=== PATIENT | male | born 1995 | race American Indian/Alaskan Native ===

== ENCOUNTER 2016-12-19 19:08 | Emergency (ER) | payer SELFPAY ==
[2016-12-19 20:35] LABS: Basophils # (Auto) 0.1 K/mm3 (0.0-0.1); Basophils % (Auto) 0.7 % (0.0-1.8); Eosinophils # (Auto) 0.2 K/mm3 (0.0-0.4); Eosinophils % (Auto) 1.8 % (0.0-4.3); Hematocrit 45.9 % (35.5-45.6); Hemoglobin 15.7 gm/dl (11.8-15.2); Lymphocytes # (Auto) 2.3 K/mm3 (1.2-5.4); Lymphocytes % (Auto) 22.2 % (13.4-35.0); Mean Corpuscular HGB Conc 34 % (32-34); Mean Corpuscular Hemoglobin 30 pg (28-32); Mean Corpuscular Volume 88 fl (84-94); Monocytes # (Auto) 0.9 K/mm3 (0.0-0.8); Monocytes % (Auto) 9.1 % (0.0-7.3); Platelet Count 244 K/mm3 (140-440); Red Blood Count 5.22 M/mm3 (3.65-5.03); Red Cell Distribution Width 14.2 % (13.2-15.2)
[2016-12-19 20:55] LABS: BUN/Creatinine Ratio 17; Blood Urea Nitrogen 15 mg/dL (9-20); Calcium 9.3 mg/dL (8.4-10.2); Hemolysis Index 9
[2016-12-19 21:21] LABS: Bilirubin,Urine NEG (Negative); Blood,Urine MOD (Negative); Color,Urine Yellow (Yellow); Mucus,Urine 2+ /HPF; Nitrite,Urine NEG (Negative); Protein,Urine <15 mg/dL mg/dL (Negative)
[2016-12-19 21:31] LABS: Amphetamine Screen,Urine PRESUMPTIVE NEGATIVE; Benzodiazepines Screen,Urine PRESUMPTIVE NEGATIVE; Cocaine Screen,Urine PRESUMPTIVE NEGATIVE; Methadone Screen,Urine PRESUMPTIVE NEGATIVE; Opiate Screen,Urine PRESUMPTIVE NEGATIVE
[2016-12-19 21:43] LABS: Cannabinoid Screen,Urine PRESUMPTIVE POSITIVE
--- NOTE | 2016-12-19 22:21 | Emergency Department Report ---
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 He states that he hears some voices sometimes but he doesn't know what they're saying. Patient has not been on any medication for the last couple weeks. Patient states that he is a fat and that he is homeless. Patient denies being in any pain when asked if he has any suicidal ideation he states "no." - Related Data Allergies Allergy/AdvReac Type Severity Reaction Status Date / Time No Known Allergies Allergy Verified 12/19/16 19:58 ED Review of Systems ROS: Stated complaint: [facility] EVAL Other details as noted in HPI Constitutional: denies: chills, fever Eyes: denies: eye pain, eye discharge, vision change ENT: denies: ear pain, throat pain Respiratory: denies: cough, shortness of breath, wheezing Cardiovascular: denies: chest pain, palpitations Endocrine: no symptoms reported Gastrointestinal: denies: abdominal pain, nausea, diarrhea Genitourinary: denies: urgency, dysuria Musculoskeletal: denies: back pain, joint swelling, arthralgia Skin: denies: rash, lesions Neurological: denies: headache, weakness, paresthesias Psychiatric: depression, auditory hallucinations, homicidal thoughts. denies: anxiety Hematological/Lymphatic: denies: easy bleeding, easy bruising ED Past Medical Hx - Past Medical History Previous Medical History?: Yes Hx Psychiatric Treatment: Yes (schizophrenia) - Surgical History Past Surgical History?: No - Social History Smoking Status: Current Every Day Smoker Substance Use Type: Alcohol, Cocaine, Marijuana ED Physical Exam - General Limitations: No Limitations General appearance: alert, in no apparent distress - Head Head exam: Present: atraumatic, normocephalic - Eye Eye exam: Present: normal appearance - ENT ENT exam: Present: mucous membranes moist - Neck Neck exam: Present: normal inspection - Respiratory Respiratory exam: Present: normal lung sounds bilaterally. Absent: respiratory distress - Cardiovascular Cardiovascular Exam: Present: regular rate, normal rhythm. Absent: systolic murmur, diastolic murmur, rubs, gallop - GI/Abdominal GI/Abdominal exam: Present: soft, normal bowel sounds - Rectal Rectal exam: Present: deferred - Extremities Exam Extremities exam: Present: normal inspection - Back Exam Back exam: Present: normal inspection - Neurological Exam Neurological exam: Present: alert, oriented X3 - Psychiatric Psychiatric exam: Present: agitated, anxious, flat affect, homicidal ideation - Skin Skin exam: Present: warm, dry, intact, normal color. Absent: rash ED Course Vital Signs 12/19/16 19:58 Temperature 98.4 F Pulse Rate 79 Respiratory 16 Rate Blood Pressure 130/91 O2 Sat by Pulse 97 Oximetry ED Medical Decision Making - Lab Data Result diagrams: 12/19/16 20:20 12/19/16 20:20 Lab Results 12/19/16 12/19/16 12/19/16 Range/Units 20:20 20:20 20:20 WBC 10.4 (4.5-11.0) K/mm3 RBC 5.22 H (3.65-5.03) M/mm3 Hgb 15.7 H (11.8-15.2) gm/dl Hct 45.9 H (35.5-45.6) % MCV 88 (84-94) fl MCH 30 (28-32) pg MCHC 34 (32-34) % RDW 14.2 (13.2-15.2) % Plt Count 244 (140-440) K/mm3 Lymph % (Auto) 22.2 (13.4-35.0) % [place] % (Auto) 9.1 H (0.0-7.3) % Eos % (Auto) 1.8 (0.0-4.3) % Baso % (Auto) 0.7 (0.0-1.8) % Lymph # 2.3 (1.2-5.4) K/mm3 [place] # 0.9 H (0.0-0.8) K/mm3 Eos # 0.2 (0.0-0.4) K/mm3 Baso # 0.1 (0.0-0.1) K/mm3 Seg Neutrophils % 66.2 (40.0-70.0) % Seg Neutrophils # 6.9 (1.8-7.7) K/mm3 Sodium 138 (137-145) mmol/L Potassium 4.8 (3.6-5.0) mmol/L Chloride 98.1 (98-107) mmol/L Carbon Dioxide 25 (22-30) mmol/L Anion Gap 20 mmol/L BUN 15 (9-20) mg/dL Creatinine 0.9 (0.8-1.5) mg/dL Estimated GFR > 60 ml/min BUN/Creatinine Ratio 17 % Glucose 91 (75-100) mg/dL Calcium 9.3 (8.4-10.2) mg/dL Urine Color (Yellow) Urine Turbidity (Clear) Urine pH (5.0-7.0) Ur Specific Pep (1.003-1.030) Urine Protein (Negative) mg/dL Urine Glucose (UA) (Negative) mg/dL Urine Ketones (Negative) mg/dL Urine Blood (Negative) Urine Nitrite (Negative) Urine Bilirubin (Negative) Urine Urobilinogen (<2.0) mg/dL Ur Leukocyte Esterase (Negative) Urine WBC (Auto) (0.0-6.0) /HPF Urine RBC (Auto) (0.0-6.0) /HPF U Epithel Cells (Auto) (0-13.0) /HPF Urine Mucus /HPF Urine Opiates Screen Urine Methadone Screen Ur Barbiturates Screen Ur Phencyclidine Scrn Ur Amphetamines Screen U Benzodiazepines Scrn Urine Cocaine Screen U Marijuana (THC) Screen Drugs of Abuse Note Plasma/Serum Alcohol < 0.01 (0-0.07) gm% 12/19/16 12/19/16 Range/Units 21:00 21:00 WBC (4.5-11.0) K/mm3 RBC (3.65-5.03) M/mm3 Hgb (11.8-15.2) gm/dl Hct (35.5-45.6) % MCV (84-94) fl MCH (28-32) pg MCHC (32-34) % RDW (13.2-15.2) % Plt Count (140-440) K/mm3 Lymph % (Auto) (13.4-35.0) % [place] % (Auto) (0.0-7.3) % Eos % (Auto) (0.0-4.3) % Baso % (Auto) (0.0-1.8) % Lymph # (1.2-5.4) K/mm3 [place] # (0.0-0.8) K/mm3 Eos # (0.0-0.4) K/mm3 Baso # (0.0-0.1) K/mm3 Seg Neutrophils % (40.0-70.0) % Seg Neutrophils # (1.8-7.7) K/mm3 Sodium (137-145) mmol/L Potassium (3.6-5.0) mmol/L Chloride (98-107) mmol/L Carbon Dioxide (22-30) mmol/L Anion Gap mmol/L BUN (9-20) mg/dL Creatinine (0.8-1.5) mg/dL Estimated GFR ml/min BUN/Creatinine Ratio % Glucose (75-100) mg/dL Calcium (8.4-10.2) mg/dL Urine Color Yellow (Yellow) Urine Turbidity Clear (Clear) Urine pH 6.0 (5.0-7.0) Ur Specific Pep 1.031 H (1.003-1.030) Urine Protein <15 mg/dl (Negative) mg/dL Urine Glucose (UA) Neg (Negative) mg/dL Urine Ketones 20 (Negative) mg/dL Urine Blood Mod (Negative) Urine Nitrite Neg (Negative) Urine Bilirubin Neg (Negative) Urine Urobilinogen 4.0 (<2.0) mg/dL Ur Leukocyte Esterase Neg (Negative) Urine WBC (Auto) 1.0 (0.0-6.0) /HPF Urine RBC (Auto) 11.0 (0.0-6.0) /HPF U Epithel Cells (Auto) < 1.0 (0-13.0) /HPF Urine Mucus 2+ /HPF Urine Opiates Screen Presumptive negative Urine Methadone Screen Presumptive negative Ur Barbiturates Screen Presumptive negative Ur Phencyclidine Scrn Presumptive negative Ur Amphetamines Screen Presumptive negative U Benzodiazepines Scrn Presumptive negative Urine Cocaine Screen Presumptive negative U Marijuana (THC) Screen Presumptive positive Drugs of Abuse Note Disclamer Plasma/Serum Alcohol (0-0.07) gm% - Medical Decision Making 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 Also on a 1013 on this patient due to him having homicidal ideation. Patient will be a sinus assessed by psychiatry in the morning. Critical care attestation.: If time is entered above; I have spent that time in minutes in the direct care of this critically ill patient, excluding procedure time. ED Disposition Clinical Impression: Homicidal ideation Schizophrenia Qualifiers: Schizophrenia type: unspecified Qualified Code(s): F20.9 - Schizophrenia, unspecified Disposition: DC/TX-65 PSY HOSP/PSY UNIT Is pt being admited?: No Does the pt Need Aspirin: No Condition: Stable Referrals: PRIMARY CARE, [Primary Care Provider] - 3-5 Days
[2016-12-20] MEDS ORDERED: ALUM-MAG HYDROX-SIMETH 200-200-20MG/5ML PO PRN (00:16)
[2016-12-20] MEDS ORDERED: MILK OF MAGNESIA PO PRN (00:16)
[2016-12-20] MEDS ORDERED: TYLENOL PO PRN (00:16)
--- NOTE | 2016-12-20 13:09 | Consultation ---
Medications and Allergies Allergies Allergy/AdvReac Type Severity Reaction Status Date / Time No Known Allergies Allergy Verified 12/19/16 19:58 Home Medications Medication Instructions Recorded Confirmed Last Taken Type No Known Home Medications [No 12/20/16 12/20/16 Unknown History Reported Home Medications] Active Meds: Active Medications Acetaminophen (Tylenol) 650 mg PO Q4HR PRN PRN Reason: Pain MILD(1-3)/Fever >100.5/PERRY Al Hydrox/Mg Hydrox/Simethicone (Alum-Mag Hydrox-Simeth 364-553-74qt/5ml) 30 ml PO Q4HR PRN PRN Reason: Indigestion Magnesium Hydroxide (Milk Of Magnesia) 30 ml PO Q12HR PRN PRN Reason: Constipation Mental Status Exam - Vital signs Last Vital Signs Temp 97.8 F 12/20/16 05:59 Pulse 88 12/20/16 05:59 Resp 18 12/20/16 11:20 BP 144/73 12/20/16 05:59 Pulse Ox 99 12/20/16 05:59 - Exam Narrative exam: MSE: Appearance: calm, cooperative Behavior: regular eye contact Speech: regular rate and tone Mood: "fine" Affect: labile Thought Process: tangential Thought Content: denies SI/HI and VH's, disorganized Motor Activity: ambulatory Cognition: A/O x3 Insight: poor Judgment: poor Results Result Diagrams: 12/19/16 20:20 12/19/16 20:20 Abnormal lab results 12/19/16 12/19/16 Range/Units 20:20 21:00 RBC 5.22 H (3.65-5.03) M/mm3 Hgb 15.7 H (11.8-15.2) gm/dl Hct 45.9 H (35.5-45.6) % [place] % (Auto) 9.1 H (0.0-7.3) % [place] # 0.9 H (0.0-0.8) K/mm3 Ur Specific [place] 1.031 H (1.003-1.030) All other labs normal.
--- NOTE | 2016-12-20 13:10 | Consultation ---
History of Present Illness - Reason for Consult Consult date: 12/20/16 Reason for consult: Mental Health Evaluation Requesting physician: EDSON GASTON - Chief Complaint Chief complaint: "What do you want" - History of Present Psychiatric Illness Patient is a 21-year-old male past medical history of schizophrenia who presents with homicidal ideation. Today patient is calm, but disorganized during the assessment. Patient has a tangential thought process. He denies HI's when asked. Patient's answers to questions are not logical. He stated that he is "overweight." The patient has a slim build. He was not able to state his location prior to his admission to [facility]. Per collateral from his mother Tari Pete at [phone], she stated that her son has been missing since 15 Dec 2016. She stated that he have not taken his medication (Zyprexa) in weeks prior to him leaving her home. She stated that he has Schizophrenia. He denies SI/HI' s and VH's. He stated that he hear voices saying, "All type of stuff." Patient had to be redirected multiple times to stay focus. Patient stated that he have not slept for 4 days. He denies recreational drug use, but positive marijuana. He denies excessive alcohol consumption (etoh). Medications and Allergies Allergies Allergy/AdvReac Type Severity Reaction Status Date / Time No Known Allergies Allergy Verified 12/19/16 19:58 Home Medications Medication Instructions Recorded Confirmed Last Taken Type No Known Home Medications [No 12/20/16 12/20/16 Unknown History Reported Home Medications] Active Meds: Active Medications Acetaminophen (Tylenol) 650 mg PO Q4HR PRN PRN Reason: Pain MILD(1-3)/Fever >100.5/PERRY Al Hydrox/Mg Hydrox/Simethicone (Alum-Mag Hydrox-Simeth 235-474-57fm/5ml) 30 ml PO Q4HR PRN PRN Reason: Indigestion Magnesium Hydroxide (Milk Of Magnesia) 30 ml PO Q12HR PRN PRN Reason: Constipation Past psychiatric history - Past Medical History Past Medical History: No medical history Past Surgical History: No surgical history - past Psychiatric treatment and history Psych: Schizophrenia psychiatric treatment history: Per his mother, patient has been to multiple inpatient psy services. - Social History Social history: other (Homeless, 11th grade education) Mental Status Exam - Vital signs Last Vital Signs Temp 97.8 F 12/20/16 05:59 Pulse 88 12/20/16 05:59 Resp 18 12/20/16 11:20 BP 144/73 12/20/16 05:59 Pulse Ox 99 12/20/16 05:59 - Exam Narrative exam: MSE: Appearance: calm, cooperative Behavior: regular eye contact Speech: regular rate and tone Mood: "okay" Affect: labile Thought Process: tangential Thought Content: denies SI/HI's and VH's, disorganized Motor Activity: ambulatory Cognition: A/O x3 Insight: poor Judgment: poor Results Result Diagrams: 12/19/16 20:20 12/19/16 20:20 Abnormal lab results 12/19/16 12/19/16 Range/Units 20:20 21:00 RBC 5.22 H (3.65-5.03) M/mm3 Hgb 15.7 H (11.8-15.2) gm/dl Hct 45.9 H (35.5-45.6) % [place] % (Auto) 9.1 H (0.0-7.3) % [place] # 0.9 H (0.0-0.8) K/mm3 Ur Specific [place] 1.031 H (1.003-1.030) All other labs normal. Assessment and Plan Assessment and plan: Impression: Historical Dx: Schizophrenia. Unspecified Psychosis. Substance Use DO (marijuana). Today patient is calm, but disorganized during the assessment. Patient experiencing AH's. DDx: R/O Bipolar, Substance Induced Psychosis Recommendation/Plan: Continue 1013 with placement to inpatient psy services. Start Zyprexa 5 mg PO HS for psychosis, Cogentin 0.5 mg PO HS for EPS prevention , and Trazodone 50 mg PO HS for sleep consolidation. Discussed possible suicidality/medication induced shivam/priapism with patient reference Trazodone.
[2016-12-20] MEDS: DESYREL PO SCH (21:51)
[2016-12-20] MEDS: COGENTIN PO SCH (22:01)
--- NOTE | 2016-12-21 22:12 | Progress Note ---
Subjective - Reason for Consult Reason for consult: disorganized Mental Status Exam - Vital signs Last Vital Signs Temp 98.7 F 12/21/16 10:00 Pulse 80 12/21/16 10:00 Resp 18 12/21/16 14:22 BP 147/93 12/21/16 10:00 Pulse Ox 100 12/21/16 14:22 Assessment and Plan Guarded and uncooperative. Appeared very disorganized. But level of disorganization and paranoia almost seemed unrealistic. Consider malingering v severe psychosis. My brief interaction limits the accuracy of the diagnostic assessment. Evidence for malingering related to the patient reporting being comfortable in the hospital and otherwise able to tolerate complete strangers without visible display of anxiety given his self reports of being paranoid. MENTAL STATUS EXAM: General Appearance: Dressed in hospital gown, no acute distress Sensorium/Consciousness: alert and responding to external stimuli Eye Contact: limited Attitude / Behavior: uncooperative Psychomotor & Musculoskeletal Activity: WNL Mood: euthymic Affect: congruent Speech / Language: normal Thought Processes: disorganized, perseverative Thought Content: no SI, no HI, + paranoid delusions? Perception: no AVH Orientation: person, place, time, situation Judgment What would you do if you smelled smoke in a crowded movie theater?: poor/impulsive Insight: poor Intelligence Vocabulary, general fund of knowledge, educational level: Average Capacity of ADLs: Independent ASSESSMENT: Schizophrenia Cannabis Abuse r/o SIPD PLAN OF CARE: Refer patient for inpatient hospitalization Continue zyprexa, cogentin and trazodone
[2016-12-21] MEDS: DESYREL PO SCH (22:22)
[2016-12-21] MEDS: COGENTIN PO SCH (22:28)
--- NOTE | 2016-12-22 14:41 | Progress Note ---
<SOWMYA CANO - Last Filed: 12/22/16 14:40> Subjective - Reason for Consult Consult date: 12/22/16 - Chief Complaint Chief complaint: "What do you want" Mental Status Exam - Vital signs Last Vital Signs Temp 98.4 F 12/22/16 09:27 Pulse 62 12/22/16 09:27 Resp 20 12/22/16 09:27 BP 149/72 12/22/16 09:27 Pulse Ox 98 12/22/16 09:29 <JESUSA LBERTO FRAUSTO - Last Filed: 12/22/16 15:03> Mental Status Exam - Vital signs Last Vital Signs Temp 98.4 F 12/22/16 09:27 Pulse 62 12/22/16 09:27 Resp 20 12/22/16 09:27 BP 149/72 12/22/16 09:27 Pulse Ox 98 12/22/16 09:29
--- NOTE | 2016-12-22 20:30 | Progress Note ---
Subjective - Reason for Consult Consult date: 12/22/16 Reason for consult: psychiatric follow up - Chief Complaint Chief complaint: "I knew I was killing people." He appeared disorganized and guarded. He mentioned being far away from home but did not elaborate. He made several statements about how he is responsible for killing people. He has not displayed aggressive behavior. Unable to identify additional information. Mental Status Exam - Vital signs Last Vital Signs Temp 98 F 12/22/16 20:14 Pulse 71 12/22/16 20:14 Resp 18 12/22/16 20:14 BP 120/63 12/22/16 20:14 Pulse Ox 100 12/22/16 20:14 Assessment and Plan MENTAL STATUS EXAM: General Appearance: Dressed in hospital gown, no acute distress Sensorium: alert Eye Contact: limited Attitude / Behavior: guarded, minimally cooperative Psychomotor & Musculoskeletal Activity: WNL Mood: irritable Affect: congruent Speech / Language: normal Thought Processes: disorganized Thought Content: no SI, no HI, paranoid delusions Perception: no AVH Orientation: person, place, time, situation Judgment : poor/impulsive Insight: poor Intelligence: Average Capacity of ADLs: Independent ASSESSMENT: Schizophrenia Cannabis Abuse r/o SIPD PLAN OF CARE: Refer patient for inpatient hospitalization Continue zyprexa and increase to 10mg hs for psychotic symptoms Continue cogentin and trazodone
[2016-12-22] MEDS: COGENTIN PO SCH (22:07)
[2016-12-22] MEDS: DESYREL PO SCH (22:07)
--- NOTE | 2016-12-23 16:30 | Progress Note ---
Subjective - Reason for Consult Consult date: 12/23/16 Reason for consult: psychiatric follow up - Chief Complaint Chief complaint: He is guarded and spoke minimally today. He appears paranoid. He denied medication side effects. He reports fair sleep and appetite. He has not displayed aggressive behavior. Unable to identify additional information. Mental Status Exam - Vital signs Last Vital Signs Temp 98.2 F 12/23/16 10:04 Pulse 66 12/23/16 10:04 Resp 18 12/23/16 10:04 BP 117/77 12/23/16 10:04 Pulse Ox 99 12/23/16 10:04 Assessment and Plan MENTAL STATUS EXAM: General Appearance: Dressed in hospital gown, no acute distress Sensorium: alert Eye Contact: limited Attitude / Behavior: guarded, minimally cooperative Psychomotor & Musculoskeletal Activity: WNL Mood: irritable Affect: congruent Speech / Language: normal Thought Processes: disorganized Thought Content: no SI, no HI, paranoid delusions expressed the previous day and is paranoia currently Perception: no AVH Orientation: person, place, time, situation Judgment : poor/impulsive Insight: poor Intelligence: Average Capacity of ADLs: Independent ASSESSMENT: Schizophrenia Cannabis Abuse r/o SIPD PLAN OF CARE: Refer patient for inpatient hospitalization Yesterday zyprexa was increased to 10mg hs for psychotic symptoms Continue cogentin and trazodone
[2016-12-23] MEDS: DESYREL PO SCH (23:22)
[2016-12-23] MEDS: COGENTIN PO SCH (23:22)
--- NOTE | 2016-12-24 14:57 | Progress Note ---
Subjective - Reason for Consult Consult date: 12/24/16 Reason for consult: Psychiatry Follow-up - Chief Complaint Chief complaint: "Why you asking all these questions" Patient is a 21-year-old male past medical history of schizophrenia who presents with homicidal ideation. Today patient is calm, but guarded during the assessment. His answers to questions were disorganized. He would stop talking when someone walk pass the room, possibly paranoia. He denies any medication side effects. He denies SI/HI's and AVH's. Mental Status Exam - Vital signs Last Vital Signs Temp 97.7 F 12/24/16 08:48 Pulse 85 12/24/16 08:48 Resp 20 12/24/16 08:49 BP 145/84 12/24/16 08:48 Pulse Ox 99 12/24/16 08:49 - Exam Narrative exam: MSE: Appearance: calm Behavior: regular eye contact Speech: regular rate and tone Mood: "okay" Affect: labile, guarded Thought Process: tangential Thought Content: denies SI/HI's and VH's, disorganized Motor Activity: ambulatory Cognition: A/O x3 Insight: poor Judgment: poor Assessment and Plan Impression: Schizophrenia. Unspecified Psychosis. Substance Use DO (marijuana). Today patient is calm, but disorganized during the assessment. DDx: R/O Bipolar, Substance Induced Psychosis Recommendation/Plan: Continue 1013 with placement to inpatient psy services. Continue Zyprexa 10 mg PO HS for psychosis, Cogentin 0.5 mg PO HS for EPS prevention, and Trazodone 50 mg PO HS for sleep consolidation. Discussed possible suicidality/medication induced shivam/priapism with patient reference Trazodone.
[2016-12-24] MEDS: COGENTIN PO SCH (22:01)
[2016-12-24] MEDS: DESYREL PO SCH (22:01)
--- NOTE | 2016-12-25 10:39 | Progress Note ---
Subjective - Reason for Consult Consult date: 12/25/16 Reason for consult: Psychiatry Follow-up - Chief Complaint Chief complaint: "What do you want" Patient is a 21-year-old male past medical history of schizophrenia who presents with homicidal ideation. Today patient is irritable during the assessment. When asked did he shower yesterday he stated, "No." Patient is malodorous. He stated that he was fine. He stated that he would like to be discharged soon. When asked where would he go once discharged, patient just stared at me. He denies SI/HI's. He would not confirm or deny AVH's. He denies any side effects of his medications. Mental Status Exam - Vital signs Last Vital Signs Temp 98.5 F 12/25/16 08:15 Pulse 18 L 12/25/16 08:15 Resp 18 12/25/16 08:15 BP 129/86 12/25/16 08:15 Pulse Ox 97 12/25/16 08:15 - Exam Narrative exam: MSE: Appearance: irritable, malodorous Behavior: regular eye contact Speech: regular rate and tone Mood: "okay" Affect: guarded Thought Process: circumstantial Thought Content: denies SI/HI's. could not confirm or deny AVH's Motor Activity: ambulatory Cognition: A/O x3 Insight: poor Judgment: poor Assessment and Plan Impression: Schizophrenia per collateral information. Unspecified Psychosis. Substance Use DO (marijuana). Today patient is irritable during the assessment. DDx: R/O Bipolar, Substance Induced Psychosis Recommendation/Plan: Continue 1013 with placement to inpatient psy services. Continue Zyprexa 10 mg PO HS for psychosis, Cogentin 0.5 mg PO HS for EPS prevention, and Trazodone 50 mg PO HS for sleep consolidation. Discussed possible suicidality/medication induced shivam/priapism with patient reference Trazodone.
[2016-12-25] MEDS: COGENTIN PO SCH (22:02)
[2016-12-25] MEDS: DESYREL PO SCH (22:04)
[2016-12-26] MEDS: COGENTIN PO SCH (21:36)
[2016-12-26] MEDS: DESYREL PO SCH (21:36)
--- NOTE | 2016-12-27 13:07 | Progress Note ---
Subjective - Reason for Consult Consult date: 12/27/16 Reason for consult: Psychiatry Follow-up - Chief Complaint Chief complaint: "Why are you here" Patient is a 21-year-old male past medical history of schizophrenia who presents with homicidal ideation. Today patient is irritable during the assessment. He stated that he wanted to "blow someone's head off" during the interview. When I asked to elaborate about this "someone" he became quiet and started talking about another topic. During the interview patient has a tangential thought process. He denies SI's and would not confirm or deny AVH's. Patient is still malodorous. He stated that he does not need to shower. Mental Status Exam - Vital signs Last Vital Signs Temp 98.3 F 12/26/16 20:46 Pulse 73 12/26/16 20:46 Resp 18 12/27/16 11:42 BP 135/73 12/26/16 20:46 Pulse Ox 98 12/27/16 11:42 - Exam Narrative exam: MSE: Appearance: irritable, malodorous Behavior: regular eye contact Speech: regular rate and tone Mood: "I'm cool" Affect: guarded Thought Process: tangential Thought Content: denies SI's. patient would not confirm or deny AVH's, disorganized Motor Activity: ambulatory Cognition: A/O x3 Insight: poor Judgment: poor Assessment and Plan Impression: Schizophrenia per collateral information. Unspecified Psychosis. Substance Use DO (marijuana). Today patient is irritable during the assessment. Patient endorsing HI's. DDx: R/O Bipolar, Substance Induced Psychosis Recommendation/Plan: Continue 1013 with placement to inpatient psy services. Continue Zyprexa 10 mg PO HS for psychosis, Cogentin 0.5 mg PO HS for EPS prevention, and Trazodone 50 mg PO HS for sleep consolidation. Discussed possible suicidality/medication induced shivam/priapism with patient reference Trazodone.
[2016-12-27] MEDS: DESYREL PO SCH (22:23)
[2016-12-27] MEDS: COGENTIN PO SCH (22:28)
--- NOTE | 2016-12-28 13:50 | Progress Note ---
Subjective - Reason for Consult Consult date: 12/28/16 Reason for consult: Psychiatry Follow-up - Chief Complaint Chief complaint: "Eldalo" Patient is a 21-year-old male past medical history of schizophrenia who presents with homicidal ideation. Today patient is irritable during the assessment. When asked about being suicidal he denies. He stated hearing more voices since last night. He stated that he didn't sleep well because of the voices. He stated that he could not tell me what the voices are saying other than they are "annoying." Patient continue to be malodorous and feels like a shower isn't needed. He denies SI/HI's and VH's. He denies any side effects of his medications. Mental Status Exam - Vital signs Last Vital Signs Temp 98.4 F 12/28/16 13:06 Pulse 79 12/28/16 13:06 Resp 12 12/28/16 13:06 BP 131/96 12/28/16 13:06 Pulse Ox 98 12/28/16 13:06 - Exam Narrative exam: MSE: Appearance: irritable, malodorous Behavior: regular eye contact Speech: regular rate and tone Mood: angry Affect: guarded Thought Process: tangential Thought Content: denies SI/HI's and VH's, disorganized Motor Activity: ambulatory Cognition: A/O x3 Insight: poor Judgment: poor Assessment and Plan Impression: Schizophrenia per collateral information. Unspecified Psychosis. Substance Use DO (marijuana). Today patient is irritable during the assessment. DDx: R/O Bipolar, Substance Induced Psychosis Recommendation/Plan: Continue 1013 with placement to inpatient psy services. Modify Zyprexa to 5 mg QAM and continue Zyprexa 10 mg PO HS for psychosis, and modify Cogentin to 0.5 mg PO BID for EPS prevention. Continue Trazodone 50 mg PO HS for sleep consolidation. Discussed possible suicidality/medication induced shivam/priapism with patient reference Trazodone.
[2016-12-28] MEDS: COGENTIN PO SCH (22:29)
[2016-12-28] MEDS: DESYREL PO SCH (22:29)
[2016-12-29] MEDS: COGENTIN PO SCH ×2 (10:50→21:59)
[2016-12-29] MEDS: DESYREL PO SCH (21:59)
[2016-12-30] MEDS: COGENTIN PO SCH ×2 (11:30→22:25)
[2016-12-30] MEDS: DESYREL PO SCH (22:24)
[2016-12-31] MEDS: COGENTIN PO SCH ×2 (10:49→22:21)
--- NOTE | 2016-12-31 11:06 | Progress Note ---
Subjective - Reason for Consult Consult date: 12/31/16 Reason for consult: Psychiatry Follow-up - Chief Complaint Chief complaint: "What" Patient is a 21-year-old male past medical history of schizophrenia who presents with homicidal ideation. Today patient is irritable during the assessment. When asked about hearing voices, he stated, "I hear them, but." He would not elaborate more when asked. During the assessement, patient was pacing around his room and refused to sit down. Per the staff, no behavioral disturbance overnight. Mental Status Exam - Vital signs Last Vital Signs Temp 98.4 F 12/31/16 09:06 Pulse 82 12/31/16 09:06 Resp 20 12/31/16 09:16 BP 136/69 12/31/16 09:06 Pulse Ox 100 12/31/16 09:16 - Exam Narrative exam: MSE: Appearance: irritable Behavior: regular eye contact Speech: regular rate and tone Mood: agitated Affect: guarded Thought Process: tangential Thought Content: denies SI/HI's and VH's, disorganized Motor Activity: pacing Cognition: A/O x3 Insight: poor Judgment: poor Assessment and Plan Impression: Schizophrenia per collateral information. Unspecified Psychosis. Substance Use DO (marijuana). Today patient is irritable during the assessment. DDx: R/O Bipolar, Substance Induced Psychosis Recommendation/Plan: Continue 1013 with pending placement to [facility]. Continue Zyprexa to 5 mg QAM and continue Zyprexa 10 mg PO HS for psychosis, Cogentin 0.5 mg PO BID for EPS prevention, and Trazodone 50 mg PO HS for sleep consolidation. Discussed possible suicidality/medication induced shivam/priapism with patient reference Trazodone.
[2016-12-31] MEDS ORDERED: GEODON IM ONE ×2 (17:35→17:36)
[2016-12-31] MEDS: DESYREL PO SCH (22:22)
[2017-01-01 08:37] VITALS: BP 110/69
[2017-01-01] MEDS: COGENTIN PO SCH ×2 (10:17→21:37)
--- NOTE | 2017-01-01 10:23 | Progress Note ---
Subjective - Reason for Consult Consult date: 01/01/17 Reason for consult: Psychiatry Follow-up - Chief Complaint Chief complaint: "Hello there" Patient is a 21-year-old male past medical history of schizophrenia who presents with homicidal ideation. Today patient is calm and cooperative during the assessment. The patient is more organized with his thoughts than previous assessments. He stated that he is seen by an ACT team ([facility]). He stated that he would like to return home and stay with his mother to be in a stable environment. He denies SI/HI's and AVH's. Per the staff, no behavioral disturbance overnight. Mental Status Exam - Vital signs Last Vital Signs Temp 97.7 F 01/01/17 07:25 Pulse 62 01/01/17 07:25 Resp 20 01/01/17 07:25 BP 110/69 01/01/17 07:25 Pulse Ox 99 01/01/17 07:25 - Exam Narrative exam: MSE: Appearance: calm, cooperative Behavior: regular eye contact Speech: regular rate and tone Mood: "well" Affect: congruent to mood Thought Process: circumstantial Thought Content: denies SI/HI's and VH's, more organized today Motor Activity: sitting down Cognition: A/O x3 Insight: variable Judgment: variable Assessment and Plan Impression: Schizophrenia per collateral information. Unspecified Psychosis. Substance Use DO (marijuana). Today patient is calm and cooperative during the assessment. DDx: R/O Bipolar, Substance Induced Psychosis Recommendation/Plan: Continue 1013 with placement to [facility], pending transport time. Continue Zyprexa to 5 mg QAM and continue Zyprexa 10 mg PO HS for psychosis, Cogentin 0.5 mg PO BID for EPS prevention, and Trazodone 50 mg PO HS for sleep consolidation. Discussed possible suicidality/medication induced shivam/priapism with patient reference Trazodone. Contact [facility] and determine if the patient can use their services if he cannot be placed with [facility].
[2017-01-01] MEDS: DESYREL PO SCH (21:37)
== END 2017-01-01 22:00 ==
LOC: ED 19:08 → EEVIPCON 19:08 → ED 01-01 22:00
DX: F20.9 Schizophrenia, unspecified (principal); F17.210 Nicotine dependence, cigarettes, uncomplicated; F12.10 Cannabis abuse, uncomplicated; F14.10 Cocaine abuse, uncomplicated
CPT/HCPCS: 36415; 80048; 80307; 81001; 85025; 99285; G0480; J3486; 80320